=== PATIENT | female | born 1950 | race Caucasian/White ===

== ENCOUNTER 2017-10-17 15:23 | Observation (INO) ==
--- NOTE | 2017-10-17 15:49 | Emergency Department Note ---
Disposition Clinical Impression: Asthma exacerbation Qualifiers: Asthma severity: moderate Asthma persistence: persistent Qualified Code(s): J45.41 - Moderate persistent asthma with (acute) exacerbation Disposition: Admitted As Inpatient Time of Disposition: 19:30 Nausea/Vomiting/Diarrhea HPI - General Chief complaint: ED Nausea/Vomiting/Diarrhea Stated complaint: cough and vomiting x one day Time Seen by Provider: 10/17/17 15:33 Source: patient, family Mode of arrival: wheelchair Limitations: no limitations Nursing Notes Reviewed: Yes Vital Signs Reviewed: Yes - History of Present Illness HPI Narrative: 67 year old female presents with coughing and vomiting. pt reports was mowing grass yesterday and all last night she was up coughing, nonproductive. this morning had nausea/vomiting. Vomited about 4 times. no abdominal pain, no diarrhea. no fevers Pt Subjective Complaint: nausea, vomiting Onset (ago): Just SOLE TIER Description of emesis: watery, bilious Associated Abdominal Pain: No Severity: none Improves with: nothing Worsens with: nonthing Associated symptoms: Reports: cough, shortness of breath. Denies: fever/chills , headaches, loss of appetite - Related Data Home Medications Medication Instructions Recorded Confirmed Biotin 5 mg PO DAILY 11/03/15 10/17/17 Carvedilol [Coreg] 25 mg PO BID 11/03/15 10/17/17 Cholecalciferol (Vitamin D3) 2,000 unit PO DAILY 11/03/15 10/17/17 [Vitamin D3] Citalopram Hydrobromide 20 mg PO DAILY 11/03/15 10/17/17 [Citalopram HBr] Famotidine [Pepcid] 40 mg PO HS 11/03/15 10/17/17 Ferrous Sulfate [Iron Supplement] 325 mg PO BID 11/03/15 10/17/17 Fluticasone/Salmeterol [Advair 1 puff IH BID 11/03/15 10/17/17 500-50 Diskus] Ipratropium/Albuterol Neb [Duoneb] 3 ml IH Q6HR 11/03/15 10/17/17 Levothyroxine Sodium [Tirosint] 75 mcg PO DAILY 11/03/15 10/17/17 Metoclopramide [Reglan] 10 mg PO QIDAC 11/03/15 10/17/17 Montelukast [Singulair] 10 mg PO HS 11/03/15 10/17/17 Multivitamin [Multi-Day Vitamins] 1 tab PO DAILY 11/03/15 10/17/17 Pantoprazole Sodium [Protonix] 40 mg PO DAILY 11/03/15 10/17/17 Potassium Chloride [K-Tab ER] 20 meq PO BID 11/03/15 10/17/17 Valsartan [Diovan] 80 mg PO DAILY 11/03/15 10/17/17 clonazePAM [Clonazepam] 1 mg PO Q8H 11/03/15 10/17/17 lamoTRIgine [Lamictal] 100 mg PO HS 11/03/15 10/17/17 Atorvastatin Calcium [Lipitor] 20 mg PO HS 12/01/15 10/17/17 Clopidogrel [Plavix] 75 mg PO DAILY 12/01/15 10/17/17 Previous Rx's Medication Instructions Recorded Aspirin Enteric Coated [Aspirin EC] 81 mg PO DAILY #90 tablet. 11/04/15 Benzonatate [Tessalon] 100 mg PO TID PRN #18 capsule 08/05/17 predniSONE [Prednisone] 4 tab PO DAILY #20 tab 08/05/17 Allergies Allergy/AdvReac Type Severity Reaction Status Date / Time dronedarone [From Multaq] Allergy Palpitation Verified 11/03/15 12:34 s heparin Allergy THROMBOCYTO Verified 11/03/15 19:02 PENIA alendronate sodium AdvReac Gastrointestinal Verified 11/03/15 12:34 [From Fosamax] Upset atorvastatin [From Lipitor] AdvReac Cramping Verified 11/03/15 12:34 of the Muscles All systems ED: reviewed and negative except as stated. Review of Systems: As Per HPI Constitutional: Denies: fever, chills Cardiovascular: Denies: chest pain, palpitations Respiratory: Reports: cough, dyspnea, wheezes. Denies: sputum production Gastrointestinal: Reports: nausea, vomiting. Denies: abdominal pain, diarrhea Genitourinary: Denies: urgency, dysuria Musculoskeletal: Denies: back pain, neck pain Integumentary: Denies: rash Neurological: Denies: headache Hematological/Lymphatic: Denies: easy bleeding, easy bruising Past Medical History - Past Medical History Attestation: Yes The following information was validated with the patient. Source: patient, nursing notes reviewed Medical history: Reports: GERD, hyperlipidemia, hypertension, thyroid disease Surgical history: Reports: cholecystectomy, coronary bypass (CABG), SARAH/BSO, other Psychiatric history: Reports: no psych history LMP comments: post menopausal - Social History Smoking Status: Never smoker Smokeless Tobacco Status: No Alcohol use: Reports: none Drug use: Reports: none Physical Exam - General Limitations: no limitations General appearance: alert, in no apparent distress - Eye Eye exam: Present: PERRL, EOMI. Absent: conjunctival injection - ENT ENT exam: normal oropharynx, mucous membranes moist, TM's normal bilaterally - Neck Neck exam: Present: normal inspection, full ROM. Absent: lymphadenopathy, thyromegaly - Chest Chest inspection: Present: normal inspection, symmetric chest wall rise - Respiratory Respiratory exam: Present: normal lung sounds bilaterally. Absent: respiratory distress - Cardiovascular Cardiovascular exam: Present: regular rate, normal rhythm, normal heart sounds - Abdominal Exam Abdominal exam: Present: soft, Non-Tender, normal bowel sounds. Absent: diminished bowel sounds, organomegaly - Extremities Exam Extremities exam: Present: normal inspection, full ROM. Absent: pedal edema - Neurological Exam Neurological exam: Present: alert, oriented X3 - Psychiatric Psychiatric exam: Present: normal affect - Skin Skin exam: Present: warm, dry, intact, pallor Course Course Narrative: pt given IVF, zofran, solumedrol and neb treatment with improvement. Unable to remove oxygen . O2 sats decreases to 87-88%. Pt will be admitted and has beenaccepted by Dr. Mejia Vital Signs Temperature 97.3 F L 10/17/17 15:41 Pulse Rate 78 10/17/17 15:41 Respiratory Rate 16 10/17/17 15:41 Blood Pressure 126/84 10/17/17 15:41 O2 Sat by Pulse Oximetry 95 10/17/17 15:41 Temperature 97.3 F L 10/17/17 15:41 Pulse Rate 82 10/17/17 17:20 Respiratory Rate 16 10/17/17 18:05 Blood Pressure 109/65 10/17/17 18:05 O2 Sat by Pulse Oximetry 92 10/17/17 17:20 Oxygen Delivery Oxygen Delivery Nasal Cannula Nausea/Vomiting/Diarrhea - Differential Diagnosis Likely: gastroenteritis. Unlikely: bowel obstruction, ischemic bowel - Lab Data Lab results reviewed: Yes I reviewed the patient's lab results. Lab results narrative: pts labs within normal limits. results discussed with pt Result diagrams: 10/17/17 15:39 10/17/17 15:39 Lab Results 10/17/17 10/17/17 10/17/17 Range/Units 15:39 15:39 15:39 WBC 8.4 (4.3-11.1) K/mcL RBC 3.86 (3.82-4.97) M/mcL Hgb 11.9 (11.5-15.4) g/dL Hct 35.0 L (35.3-44.9) % MCV 90.7 (83.0-100.0) fL MCH 30.8 (28.0-33.3) pg MCHC 34.0 (31.6-35.5) g/dL RDW 13.5 (11.5-14.5) % Plt Count 163 (140-400) K/mcL MPV 9.8 (9.4-12.4) fL Immature Gran % 0.5 (0-4) % Seg Neutrophils % 79.3 % Lymphocytes % 9.9 % Monocytes % 9.8 % Eosinophils % 0.1 % Basophils % 0.4 % Neutrophils # 6.7 (1.6-8.9) K/mcL Lymphocytes # 0.8 (0.6-4.6) K/mcL Monocytes # 0.8 (0.0-1.3) K/mcL Eosinophils # 0.0 (0.0-0.6) K/mcL Basophils # 0.0 (0.0-0.2) K/mcL PT 12.8 H (9.4-12.1) Seconds INR 1.2 APTT 31.7 (26.0-36.0) Seconds Sodium 133 L (136-145) mEq/L Potassium 3.8 (3.5-5.1) mEq/L Chloride 101 (98-107) mEq/L Carbon Dioxide 23 (23-29) mEq/L BUN 11 (8-23) mg/dL Creatinine 1.00 (0.60-1.20) mg/dL Est GFR ( Amer) > 60 (> 60) Est GFR (Non-Af Amer) 55 L (> 60) BUN/Creatinine Ratio 11 (6-26) Glucose 128 H (70-105) mg/dL Calculated Osmolality 277 L (280-300) Calcium 9.7 (8.6-10.3) mg/dL Total Bilirubin 1.6 H (0.3-1.0) mg/dL AST 17 (13-39) Units/L ALT 8 (7-52) Units/L Alkaline Phosphatase 54 (34-104) Units/L Creatine Kinase 73 (30-223) Units/L Troponin I 0.03 (< 0.04) ng/mL Serum Total Protein 6.6 (6.4-8.9) g/dL Albumin 4.1 (3.5-5.7) g/dL Globulin 2.5 (2.4-3.5) g/dL Albumin/Globulin Ratio 1.6 (1.1-2.2) Amylase 35 (29-103) Units/L Lipase 17 (11-82) Units/L - Radiology Data Radiology results reviewed: Yes I reviewed the patient's radiology results. pts chest xray was interpreted by the radiologist and reviewed by me as negative for acute abnormalities. Results discussed with pt - EKG Data EKG attestation: Yes I reviewed and interpreted this EKG. EKG shows normal: sinus rhythm Rate: normal Rhythm: other (paced rhythm) Interpretation: other (paced rhythm)
[2017-10-17] MEDS ORDERED: Ondansetron 4 MG/2 ML VIAL IVP ONE (15:50)
[2017-10-17] MEDS ORDERED: 0.9 % Sodium Chloride 1,000 ML IVC ONE (15:50)
[2017-10-17] MEDS ORDERED: Ipratropium/Albuterol Neb 3 ML IH ONE (15:50)
[2017-10-17] MEDS ORDERED: methylPREDNISolone 125 MG/2 ML VIAL IVP ONE (15:50)
[2017-10-17 15:59] LABS: Basophils % 0.4 %; Eosinophils % 0.1 %; Hemoglobin 11.9 g/dL (11.5-15.4); Immature Granulocytes % 0.5 % (0-4); Lymphocytes # 0.8 K/mcL (0.6-4.6); Lymphocytes % 9.9 %; Mean Corpuscular Hemoglobin 30.8 pg (28.0-33.3); Mean Corpuscular Volume 90.7 fL (83.0-100.0); Mean Platelet Volume 9.8 fL (9.4-12.4); Monocytes # 0.8 K/mcL (0.0-1.3); Monocytes % 9.8 %; Neutrophils # 6.7 K/mcL (1.6-8.9); Platelet Count 163 K/mcL (140-400); Red Blood Count 3.86 M/mcL (3.82-4.97); Red Cell Distribution Width 13.5 % (11.5-14.5); Segmented Neutrophils % 79.3 %
[2017-10-17 16:01] LABS: INR 1.2; Prothrombin Time 12.8 Seconds (9.4-12.1)
[2017-10-17 16:04] LABS: Activated Partial Thrombo Time 31.7 Seconds (26.0-36.0)
[2017-10-17 16:11] LABS: Troponin I 0.03 ng/mL (< 0.04)
[2017-10-17 16:12] LABS: Alanine Aminotransferase 8 Units/L (7-52); Albumin 4.1 g/dL (3.5-5.7); Albumin/Globulin Ratio 1.6 (1.1-2.2); Alkaline Phosphatase 54 Units/L (34-104); Amylase 35 Units/L (29-103); Aspartate Amino Transferase 17 Units/L (13-39); BUN/Creatinine Ratio 11 (6-26); Bilirubin,Total 1.6 mg/dL (0.3-1.0); Blood Urea Nitrogen 11 mg/dL (8-23); Calcium 9.7 mg/dL (8.6-10.3); Carbon Dioxide 23 mEq/L (23-29); Chloride 101 mEq/L (98-107); Creatine Kinase 73 Units/L (30-223); Globulin 2.5 g/dL (2.4-3.5); Glucose 128 mg/dL (70-105); Lipase 17 Units/L (11-82); Osmolality,Calculated 277 (280-300); Potassium 3.8 mEq/L (3.5-5.1); Sodium 133 mEq/L (136-145); Total Protein 6.6 g/dL (6.4-8.9); eGFR For African Americans > 60 (> 60); eGFR For Non-African Americans 55 (> 60)
[2017-10-17] MEDS ORDERED: Benzonatate 100 MG CAPSULE PO PRN (17:10)
[2017-10-17] MEDS ORDERED: Naloxone 0.4 MG/ML INJ IVP PRN (17:10)
[2017-10-17] MEDS ORDERED: clonazePAM 1 MG TABLET PO SCH (17:15)
--- NOTE | 2017-10-17 18:30 | Internal Med History&Physical ---
Date of Encounter: 10/17/17 Time of Encounter: 19:49 Assessment and Plan (1) Asthma exacerbation Current visit: Yes Status: Acute oxygen,solumedrol, duoneb and prn albuterol. rocephin,zithromax Qualifiers: Asthma severity: moderate Asthma persistence: persistent Qualified Code(s ): J45.41 - Moderate persistent asthma with (acute) exacerbation (2) Essential (primary) hypertension Current visit: Yes Status: Acute will continue her home medication (3) Acquired hypothyroidism Current visit: Yes Status: Acute will continue her home medication (4) Depression Current visit: Yes Status: Acute will continue her home medication Qualifiers: Depression Type: dysthymia Qualified Code(s): F34.1 - Dysthymic disorder (5) CAD (coronary artery disease) Current visit: No Status: Chronic troponin serial ordered from ER Qualifiers: Coronary Disease-Associated Artery/Lesion type: bypass graft, autologous vein Associated angina: without angina Qualified Code(s): I25.810 - Atherosclerosis of coronary artery bypass graft(s) without angina pectoris (6) History of heparin-induced thrombocytopenia Current visit: No Status: Chronic melba hose for dvt prophylaxis (7) Mixed hyperlipidemia Current visit: No Status: Chronic home medication (8) GERD (gastroesophageal reflux disease) Current visit: Yes Status: Acute will continue ppi and pepcid Qualifiers: Esophagitis presence: esophagitis presence not specified Qualified Code(s) : K21.9 - Gastro-esophageal reflux disease without esophagitis (9) Anemia Current visit: Yes Status: Acute continue the po iron repeat cbc in the am Qualifiers: Anemia type: unspecified type Qualified Code(s): D64.9 - Anemia, unspecified Internal Medicine - H&P: HPI Chief complaint: sob Admitted From: Home Plans for Post Hospital Care: Home History of present illness: Ms. Little is a 67 year old female who started having emesis today at home. she called the office and Palak Torres sent phenergan for her. she got sob with wheezing and came to the ER. there she was noted to be hypoxic in the 80s on room air. she was admitted due the hypoxia. she has not needed oxygen prior. she was given solumedrol and duonebs in the er and the oxygen. on 09/24/17 she was seen in the office with an asthma exacerbation and took prednisone as a taper and benzonatate. she did get better from that then this started yesterday after cut the lawn yesterday. she was coughing wheezing sob, no sputum, felt warm. she was nauseated and had emesis x 4 today. she is not nauseated now no emesis since the am. she ate lunch and has dinner now. Past Med Surg Social Fam HX - Past Medical History Medical history: asthma, coronary artery disease (pacemaker, cabg and stent), GERD, hyperlipidemia, hypertension, kidney stones, osteoporosis, thyroid disease (hypothyroid), valvular heart disease (MVR), other (vitamin b12 def, urethral polyp, HIT,crohn's,back pain) Psychiatric history: anxiety, depression - Past Surgical History Surgical History: carotid endarterectomy (right 10/2015, left 11/2015), cholecystectomy (1999), coronary bypass (CABG) (1998.2000 with MVR), SARAH/BSO ( 1984), other (dental 2009, colonoscopy 2008,08/07/17; bowel resection 1984,2000) , pacemaker (2007, 2009, 12/10/14) - Social History Smoking Status: Never smoker Smokeless Tobacco Status: No Alcohol use: none Drug use: none - Family History Mother Hx Family Cardiac Disorders: Yes ("heart problems") Hx Family Cancer: Yes (breast) Brother Hx Family Cardiac Disorders: Yes (cad) Hx Family Neuromuscular Disorders: Yes (dementia) Father Living Status: Age at : 29 Cause of : electrical accident Sister Hx Family Cardiac Disorders: Yes (cad) Hx Family GI Disorders: Yes (celiac) Hx Family Endocrine Disorder: Yes (dm2) Paternal Grandfather Living Status: Cause of : pneumonia Maternal Grandfather Hx Family Cardiac Disorders: Yes (htn) Hx Family Endocrine Disorder: Yes (dm2) Internal Medicine - H&P: Meds Biotin 5 mg PO DAILY 11/03/15 [History] Carvedilol [Coreg] 25 mg PO BID 11/03/15 [History] Cholecalciferol (Vitamin D3) [Vitamin D3] 2,000 unit PO DAILY 11/03/15 [History] Citalopram Hydrobromide [Citalopram HBr] 20 mg PO DAILY 11/03/15 [History] Famotidine [Pepcid] 40 mg PO HS 11/03/15 [History] Ferrous Sulfate [Iron Supplement] 325 mg PO BID 11/03/15 [History] Fluticasone/Salmeterol [Advair 500-50 Diskus] 1 puff IH BID 11/03/15 [History] Ipratropium/Albuterol Neb [Duoneb] 3 ml IH Q6HR 11/03/15 [History] Levothyroxine Sodium [Tirosint] 75 mcg PO DAILY 11/03/15 [History] Metoclopramide [Reglan] 10 mg PO QIDAC 11/03/15 [History] Montelukast [Singulair] 10 mg PO HS 11/03/15 [History] Multivitamin [Multi-Day Vitamins] 1 tab PO DAILY 11/03/15 [History] Pantoprazole Sodium [Protonix] 40 mg PO DAILY 11/03/15 [History] Potassium Chloride [K-Tab ER] 20 meq PO BID 11/03/15 [History] Valsartan [Diovan] 80 mg PO DAILY 11/03/15 [History] clonazePAM [Clonazepam] 1 mg PO Q8H 11/03/15 [History] lamoTRIgine [Lamictal] 100 mg PO HS 11/03/15 [History] Aspirin Enteric Coated [Aspirin EC] 81 mg PO DAILY #90 tablet. 11/04/15 [Rx] Atorvastatin Calcium [Lipitor] 20 mg PO HS 12/01/15 [History] Clopidogrel [Plavix] 75 mg PO DAILY 12/01/15 [History] Benzonatate [Tessalon] 100 mg PO TID PRN #18 capsule 08/05/17 [Rx] predniSONE [Prednisone] 4 tab PO DAILY #20 tab 08/05/17 [Rx] 3 Allergy/AdvReac Type Severity Reaction Status Date / Time dronedarone [From Multaq] Allergy Palpitation Verified 11/03/15 12:34 s heparin Allergy THROMBOCYTO Verified 11/03/15 19:02 PENIA alendronate sodium AdvReac Gastrointestinal Verified 11/03/15 12:34 [From Fosamax] Upset atorvastatin [From Lipitor] AdvReac Cramping Verified 11/03/15 12:34 of the Muscles All Systems PM: A 10-system review of systems was performed and is negative for pertinent findings except as documented above in the HPI. - Constitutional Constitutional: fever(s) (subective), no falls - EENT Eyes: no change in vision Nose, mouth and throat: nasal congestion, nasal discharge - Cardiovascular Cardiovascular ROS IM: dyspnea, dyspnea on exertion, no edema, no lightheadedness, no palpitations, no syncope - Respiratory Respiratory: cough, dyspnea on exertion, wheezing, chest congestion, pain with cough, no hemoptysis - Gastrointestinal Gastrointestinal: heartburn, nausea, vomiting, no abdominal pain, no change in bowel habits, no constipation, no diarrhea, no hematemesis, no hematochezia - Musculoskeletal Musculoskeletal ROS IM: no tingling - Integumentary Integumentary IM: no pruritus, no rash - Neurological Neurological ROS: no dizziness, no numbness, no paresthesias, no weakness - Endocrine Endocrine IM: fatigue - Constitutional Vitals: Temp Pulse Resp BP Pulse Ox 97.3 F L 82 16 109/65 92 10/17/17 15:41 10/17/17 17:20 10/17/17 18:05 10/17/17 18:05 10/17/17 17:20 General appearance: Present: A&O X 3, pleasant, no acute distress, answers questions appropriately - Head Head exam: Present: atraumatic, normocephalic - Neck Neck exam general surgery: Present: full ROM - Respiratory Respiratory exam: Present: prolonged expiratory phase - Cardiovascular Cardiovascular exam: Present: RRR, +S1, +S2 - GI/Abdominal GI/Abdominal exam: Present: normal bowel sounds, soft, no peritoneal signs. Absent: distended, guarding, mass, tenderness - Extremities Exam Extremities exam: Present: normal capillary refill, warm. Absent: mottling, pedal edema - Skin Skin exam: Present: dry, warm. Absent: rash Internal Med - H&P Results - Labs CBC & Chem 7: 10/17/17 15:39 10/17/17 15:39
[2017-10-17] MEDS: 0.9 % Sodium Chloride 1,000 ML IVC SCH (18:36)
[2017-10-17] MEDS ORDERED: Albuterol 2.5 MG/3 ML NEBULIZER IH PRN (19:03)
[2017-10-17] MEDS: Budesonide/Formoterol 160/4.5 MDI IH SCH (20:51)
[2017-10-17] MEDS: Famotidine 20 MG TABLET PO SCH (20:51)
[2017-10-17] MEDS: lamoTRIgine 100 MG TABLET PO SCH (20:51)
[2017-10-17] MEDS: cefTRIAXone 1,000 MG in Water for inj. (sterile) 20 ML 10 ML IVP SCH (20:52)
[2017-10-17] MEDS: Azithromycin 500 MG in D5% in Water 250 ML IVPB SCH (20:55)
[2017-10-17] MEDS: Ipratropium/Albuterol Neb 3 ML IH SCH (21:05)
[2017-10-18] MEDS: methylPREDNISolone 125 MG/2 ML VIAL IVP SCH ×4 (00:03→23:18)
[2017-10-18] MEDS: 0.9 % Sodium Chloride 1,000 ML IVC SCH (02:40)
[2017-10-18 03:52] LABS: Hematocrit 30.3 % (35.3-44.9); Hemoglobin 10.2 g/dL (11.5-15.4); Immature Granulocytes % 0.3 % (0-4); Lymphocytes # 0.8 K/mcL (0.6-4.6); Lymphocytes % 22.5 %; Mean Corpuscular HGB Conc 33.7 g/dL (31.6-35.5); Mean Corpuscular Hemoglobin 30.9 pg (28.0-33.3); Mean Corpuscular Volume 91.8 fL (83.0-100.0); Mean Platelet Volume 9.1 fL (9.4-12.4); Monocytes # 0.1 K/mcL (0.0-1.3); Monocytes % 2.8 %; Neutrophils # 2.7 K/mcL (1.6-8.9); Platelet Count 122 K/mcL (140-400); Red Cell Distribution Width 13.6 % (11.5-14.5); Segmented Neutrophils % 74.4 %
[2017-10-18 04:08] LABS: Alanine Aminotransferase 7 Units/L (7-52); Albumin 3.4 g/dL (3.5-5.7); Albumin/Globulin Ratio 1.5 (1.1-2.2); Alkaline Phosphatase 41 Units/L (34-104); Aspartate Amino Transferase 14 Units/L (13-39); BUN/Creatinine Ratio 15 (6-26); Bilirubin,Total 1.2 mg/dL (0.3-1.0); Blood Urea Nitrogen 15 mg/dL (8-23); Calcium 8.7 mg/dL (8.6-10.3); Carbon Dioxide 24 mEq/L (23-29); Chloride 103 mEq/L (98-107); Globulin 2.3 g/dL (2.4-3.5); Glucose 146 mg/dL (70-105); Osmolality,Calculated 281 (280-300); Sodium 134 mEq/L (136-145); Total Protein 5.7 g/dL (6.4-8.9); eGFR For African Americans > 60 (> 60); eGFR For Non-African Americans 54 (> 60)
[2017-10-18] MEDS: Ipratropium/Albuterol Neb 3 ML IH SCH ×4 (05:00→22:02)
[2017-10-18 05:16] LABS: Bilirubin,Urine Negative (Negative); Blood,Urine Moderate (Negative); Clarity,Urine Clear (Clear); Color,Urine Yellow (Yellow); Glucose,Urine (UA) Normal (Normal); Ketones,Urine Negative (Negative); Leukocyte Esterase,Urine Negative (Negative); Nitrite,Urine Negative (Negative); Protein,Urine Trace mg/dL (Neg-Trace); Specific Gravity,Urine 1.015 (1.010-1.025); Urobilinogen,Urine Normal (Normal)
[2017-10-18 05:27] LABS: Bacteria,Urine Few per hpf (None-Few); RBC,Urine 15-30 per hpf (0-3); Squamous Epithelial Cell,Urine Few per lpf (None-Few); WBC,Urine 0-3 per hpf (0-3)
--- NOTE | 2017-10-18 08:27 | Internal Med Progress Note ---
Date of Encounter: 10/18/17 Time of Encounter: 08:27 - Assessment and plan (1) Asthma exacerbation Current Visit: Yes Status: Acute Assessment and plan: she has wheezing on exam today. she is feeling better. will wean oxygen as tolerated. cont duonebs, prn alb, cont solumedrol,zithromax and the rocephin. she was not on oxygen prior to admission Qualifiers: Asthma severity: moderate Asthma persistence: persistent Qualified Code(s ): J45.41 - Moderate persistent asthma with (acute) exacerbation (2) Essential (primary) hypertension Current Visit: Yes Status: Acute Assessment and plan: stable will continue home medication (3) Acquired hypothyroidism Current Visit: Yes Status: Acute Assessment and plan: will cont home medication (4) Depression Current Visit: Yes Status: Acute Assessment and plan: will continue home medication Qualifiers: Depression Type: dysthymia Qualified Code(s): F34.1 - Dysthymic disorder (5) CAD (coronary artery disease) Current Visit: No Status: Chronic Assessment and plan: troponin were neg x 3 cont coreg asa and plavix Qualifiers: Coronary Disease-Associated Artery/Lesion type: bypass graft, autologous vein Associated angina: without angina Qualified Code(s): I25.810 - Atherosclerosis of coronary artery bypass graft(s) without angina pectoris (6) History of heparin-induced thrombocytopenia Current Visit: No Status: Chronic Assessment and plan: she has melba megan for dvt prophylaxis (7) Mixed hyperlipidemia Current Visit: No Status: Chronic Assessment and plan: continue home medication (8) GERD (gastroesophageal reflux disease) Current Visit: Yes Status: Acute Assessment and plan: cont home medication. she is not having any more emesis Qualifiers: Esophagitis presence: esophagitis presence not specified Qualified Code(s) : K21.9 - Gastro-esophageal reflux disease without esophagitis (9) Anemia Current Visit: Yes Status: Acute Assessment and plan: hg has decreased will follow could be due to hemodilution. cont iron Qualifiers: Anemia type: unspecified type Qualified Code(s): D64.9 - Anemia, unspecified (10) S/P MVR (mitral valve replacement) Current Visit: Yes Status: Acute Assessment and plan: will check echo today with her sob - Subjective Interval history: she feels better this morning. she slept well. the wheezing did not keep her up. her cough is better, no sputum, felt feverish last night and got sweaty. no more nausea or emesis. no diarrhea. no dizzy, no cp, no edema. - Constitutional Vitals: Temp Pulse Resp BP Pulse Ox 97.3 F L 90 18 120/78 99 10/18/17 07:49 10/18/17 07:49 10/18/17 07:49 10/18/17 07:49 10/18/17 07:49 General appearance: Present: A&O X 3, pleasant, no acute distress, answers questions appropriately - Head Head exam: Present: atraumatic, normocephalic - Neck Neck exam general surgery: Present: supple, trachea midline. Absent: lymphadenopathy - Respiratory Respiratory exam: Present: decreased breath sounds (bases), prolonged expiratory phase, wheezes - Cardiovascular Cardiovascular exam: Present: RRR, systolic murmur - GI/Abdominal GI/Abdominal exam: Present: normal bowel sounds, soft, no peritoneal signs. Absent: distended, guarding, mass, rebound, tenderness - Extremities Exam Extremities exam: Present: normal capillary refill, warm. Absent: cyanotic, pedal edema - Skin Skin exam: Present: dry, warm. Absent: rash Internal Medicine: Result - Labs CBC & Chem 7: 10/18/17 03:41 10/18/17 03:41 Labs: Short CBC 10/18/17 Range/Units 03:41 WBC 3.6 L D (4.3-11.1) K/mcL Hgb 10.2 L D (11.5-15.4) g/dL Hct 30.3 L (35.3-44.9) % Plt Count 122 L (140-400) K/mcL Neutrophils # 2.7 (1.6-8.9) K/mcL BMP 10/18/17 03:41 Sodium 134 L Potassium 4.0 Chloride 103 Carbon Dioxide 24 BUN 15 Creatinine 1.02 Glucose 146 H Calcium 8.7 Cardiac Enzymes 10/17/17 10/18/17 Range/Units 21:38 03:41 Troponin I 0.03 < 0.03 (< 0.04) ng/mL Liver Function 10/18/17 Range/Units 03:41 Total Bilirubin 1.2 H (0.3-1.0) mg/dL AST 14 (13-39) Units/L ALT 7 (7-52) Units/L Alkaline Phosphatase 41 (34-104) Units/L Albumin 3.4 L (3.5-5.7) g/dL Urine 10/18/17 Range/Units 04:20 Urine Color Yellow (Yellow) Urine Clarity Clear (Clear) Urine pH 6.0 (5.0-8.0) pH Units Ur Specific [place] 1.015 (1.010-1.025) Urine Protein Trace (Neg-Trace) mg/dL Urine Glucose (UA) Normal (Normal) mg/dL - ABG Interpretation ABG results: PT/INR, D-dimer PT 12.8 Seconds (9.4-12.1) H 10/17/17 15:39 - VTE Documentation of Mechanical Device: Graduated compression elastic hosiery Consult Discharge Plan - Plan Referrals: Ann Torres, HOME ADVISOR [Primary Care Provider] -
[2017-10-18] MEDS: Valsartan 80 MG TABLET PO SCH (08:59)
[2017-10-18] MEDS: Multivit/Ca/Min/Fe/FA 1 TAB TABLET PO SCH (09:00)
[2017-10-18] MEDS: Aspirin Enteric Coated 81 MG Tablet PO SCH (09:00)
[2017-10-18] MEDS ORDERED: Cholecalciferol (D-3) 1,000 UNIT TABLET PO SCH (09:00)
[2017-10-18] MEDS: Folic Acid 1 MG TABLET PO SCH (09:00)
[2017-10-18] MEDS: (Biotin [Biotin] 5 MG) PO SCH (09:01)
[2017-10-18] MEDS: Cholecalciferol (D-3) 1,000 UNIT TABLET PO SCH (09:01)
--- NOTE | 2017-10-18 09:01 | Electrocardiograph Report ---
[place] [id number] Test Date: 2017-10-17 Pat Name: Lu Little Department: 2000 Room: 118 Gender: F Commercial Plumber: : [id number] Requested By: Talita Vasquez Order Number: [id number] Reading MD: Gilbert Woodard Measurements Intervals [place] Rate: 82 P: [place]: 0 QRS: 69 QRSD: 148 T: 134 QT: 435 QTc: 474 Interpretive Statements ELECTRONIC VENTRICULAR PACEMAKER WITH PVC Electronically Signed On 10-18-2017 8:59:39 EDT by Gilbert Woodard
[2017-10-18] MEDS: Budesonide/Formoterol 160/4.5 MDI IH SCH ×2 (09:02→22:08)
[2017-10-18] MEDS: clonazePAM 1 MG TABLET PO PRN ×3 (09:56→22:02)
[2017-10-18] MEDS ORDERED: Perflutren Lipid Microsphere 1.3 ML in 0.9 % Sodium Chloride 8.7 ML IVP ONE (15:51)
[2017-10-18] MEDS: Azithromycin 500 MG in D5% in Water 250 ML IVPB SCH (17:26)
[2017-10-18] MEDS: cefTRIAXone 1,000 MG in Water for inj. (sterile) 20 ML 10 ML IVP SCH (17:26)
[2017-10-18] MEDS: Famotidine 20 MG TABLET PO SCH (22:02)
[2017-10-18] MEDS: lamoTRIgine 100 MG TABLET PO SCH (22:02)
[2017-10-18] MEDS ORDERED: traMADol 50 MG TABLET PO PRN (23:06)
[2017-10-18] MEDS: Acetaminophen 325 MG TABLET PO PRN (23:21)
[2017-10-19] MEDS: Ipratropium/Albuterol Neb 3 ML IH SCH ×2 (05:12→09:35)
[2017-10-19 05:38] LABS: Hematocrit 27.9 % (35.3-44.9); Hemoglobin 9.5 g/dL (11.5-15.4); Immature Granulocytes % 0.5 % (0-4); Lymphocytes # 1.1 K/mcL (0.6-4.6); Lymphocytes % 10.1 %; Mean Corpuscular HGB Conc 34.1 g/dL (31.6-35.5); Mean Corpuscular Hemoglobin 30.8 pg (28.0-33.3); Mean Corpuscular Volume 90.6 fL (83.0-100.0); Mean Platelet Volume 10.2 fL (9.4-12.4); Monocytes # 0.4 K/mcL (0.0-1.3); Monocytes % 3.3 %; Platelet Count 127 K/mcL (140-400); Red Blood Count 3.08 M/mcL (3.82-4.97); Red Cell Distribution Width 13.6 % (11.5-14.5); Segmented Neutrophils % 86.1 %
[2017-10-19 05:45] LABS: Neutrophils # 9.6 K/mcL (1.6-8.9)
[2017-10-19 06:02] LABS: BUN/Creatinine Ratio 20 (6-26); Blood Urea Nitrogen 20 mg/dL (8-23); Calcium 8.9 mg/dL (8.6-10.3); Carbon Dioxide 22 mEq/L (23-29); Chloride 104 mEq/L (98-107); Glucose 142 mg/dL (70-105); Osmolality,Calculated 283 (280-300); Potassium 4.2 mEq/L (3.5-5.1); Sodium 134 mEq/L (136-145); eGFR For African Americans > 60 (> 60); eGFR For Non-African Americans 55 (> 60)
[2017-10-19] MEDS: Multivit/Ca/Min/Fe/FA 1 TAB TABLET PO SCH (08:27)
[2017-10-19] MEDS: methylPREDNISolone 125 MG/2 ML VIAL IVP SCH (08:27)
[2017-10-19] MEDS: Acetaminophen 325 MG TABLET PO PRN (08:27)
[2017-10-19] MEDS: (Biotin [Biotin] 5 MG) PO SCH (08:28)
[2017-10-19] MEDS: Valsartan 80 MG TABLET PO SCH (08:28)
[2017-10-19] MEDS: Folic Acid 1 MG TABLET PO SCH (08:28)
[2017-10-19] MEDS: Cholecalciferol (D-3) 1,000 UNIT TABLET PO SCH (08:28)
[2017-10-19] MEDS: Aspirin Enteric Coated 81 MG Tablet PO SCH (08:28)
[2017-10-19] MEDS: clonazePAM 1 MG TABLET PO PRN (09:35)
[2017-10-19] MEDS: Budesonide/Formoterol 160/4.5 MDI IH SCH (09:35)
[2017-10-19 12:49] VITALS: BP 155/88
--- NOTE | 2017-10-19 13:27 | Internal Med Progress Note ---
Date of Encounter: 10/19/17 Time of Encounter: 13:06 - Constitutional Vitals: Temp Pulse Resp BP Pulse Ox 97.9 F 69 18 155/88 97 10/19/17 12:30 10/19/17 12:30 10/19/17 12:30 10/19/17 12:30 10/19/17 12:30 General appearance: Present: A&O X 3, pleasant, no acute distress, answers questions appropriately Internal Medicine: Result - Labs CBC & Chem 7: 10/19/17 05:30 10/19/17 05:30 Labs: Short CBC 10/19/17 Range/Units 05:30 WBC 11.1 D (4.3-11.1) K/mcL Hgb 9.5 L (11.5-15.4) g/dL Hct 27.9 L (35.3-44.9) % Plt Count 127 L (140-400) K/mcL Neutrophils # 9.6 H (1.6-8.9) K/mcL BMP 10/19/17 05:30 Sodium 134 L Potassium 4.2 Chloride 104 Carbon Dioxide 22 L BUN 20 Creatinine 1.00 Glucose 142 H Calcium 8.9 - ABG Interpretation ABG results: PT/INR, D-dimer PT 12.8 Seconds (9.4-12.1) H 10/17/17 15:39 - Impressions Impressions Echocardiogram 10/18/17 08:27 Impressions: LVEF 20-25%. Severe global reduction in LV systolic function. Indeterminate diastolic function. There is no LV thrombus. Definity echo contrast was used. RV is suboptimally evaluated. Prosthetic mitral valve is not optimally visualized. By Doppler, possible evidence for obstruction/stenosis. Recommend correlate clinically. Moderate tricuspid regurgitation. Mild-moderate pulmonary hypertension. Left Ventricular Wall Motion: Rest Echo Findings The apex, apical inferior, mid inferior, basal inferior, apical anterior, mid anterior, basal anterior, apical septal, mid inferior septal, basal inferior septal, apical lateral, mid anterior lateral, basal anterior lateral, mid anterior septal, mid inferior lateral, basal anterior septal and basal inferior lateral [place] were hypokinetic. Findings: Study Quality * Technically adequate exam. ECG Findings * Normal sinus rhythm. Left Ventricle * LVEF 20-25%. * Mild-moderately dilated left ventricle. * Indeterminate diastolic function. * There is no LV thrombus. * Definity echo contrast was used. Right Ventricle * RV is suboptimally evaluated. Left Atrium * Left atrium is not well visualized. Right Atrium * Normal right atrial size. Aortic Valve * No aortic regurgitation. * Aortic valve not well visualized. * No aortic stenosis. Mitral Valve * No mitral regurgitation. * Mitral valve not well visualized. * Prosthetic mitral Doppler Peak E wave 2.6m/s, PHT 143 ms, VTI ratio 3.2. Tricuspid Valve * Tricuspid valve not well visualized. * Moderate tricuspid regurgitation. * Estimated RA pressure is 8 mmHg. * Estimated RVSP is 49 mmHg. * Mild-moderate pulmonary hypertension. Pulmonic Valve * Pulmonic valve is not well visualized. * No pulmonic stenosis. * No pulmonic regurgitation. Pulmonary Artery * Pulmonary artery not well visualized. Aorta * Normally sized aortic root. * Ascending aorta not well visualized. Device lead * A device lead was visualized in the right atrium and right ventricle. Pericardium * There is no pericardial effusion present. Interatrial Septum * No evidence of PFO by color Doppler. IVC * The IVC is not dilated. * < 50% respiratory change. - VTE Documentation of Mechanical Device: Graduated compression elastic hosiery Consult Discharge Plan - Plan Referrals: Ann Torres, INFORMATION TECHNOLOGY TECHNICIAN [Primary Care Provider] -
--- NOTE | 2017-10-19 14:02 | Discharge Summary ---
- NOTES TO OUTPATIENT PROVIDER Notes to Outpatient Provider: #1. A tapering of prednisone was sent to [facility] pharmacy at time of discharge #2. Patient has mild anemia and thrombocytopenia and CBC should be rechecked. #3. Echocardiogram was done showing ejection fraction of 20-25% and poorly defined mitral valve. Patiently recently saw her computer operations technician in [place]. Records/echocardiogram should be forwarded to him. Date of Encounter: 10/19/17 Time of Encounter: 13:59 - Discharge Diagnosis (1) Asthma exacerbation Priority: Primary Status: Acute Comments: Patient was admitted to the hospital via the ER with a history of nausea and vomiting and dyspnea. The GI symptoms abated very quickly. She had residual exacerbation of her asthma. It was likely exposure to a chemical or allergen that she inhaled when her was mowing the grass. She is placed on aggressive nebulizer treatments, IV Solu-Medrol and oxygen. She improved very dramatically over the subsequent 2 days. Her oxygen saturations are 97%, she is able to walk the entire length of the hallway and back without having dyspnea or hypoxia or chest pain. Her lungs show diminished breath sounds but are clear. She was sufficiently improved and back to her usual ADLs to be able to send home today on tapering dose of prednisone. She has a nebulizer machine at home as well as her inhalers. She will follow-up in the office with Ann Torres in a few days. Qualifiers: Asthma severity: moderate Asthma persistence: persistent Qualified Code(s ): J45.41 - Moderate persistent asthma with (acute) exacerbation (2) Ischemic cardiomyopathy Priority: Secondary Status: Acute Comments: In the emergency room her BNP was elevated to 1500. On follow-up was 462. An echocardiogram was obtained which shows ischemic cardiopathy with a fixed defect without acute ischemic changes. Ejection fraction was estimated at 20-25 %. This is in comparison with a nuclear stress test done 2 years ago which showed ejection fraction of 29%. The views of the replaced mitral valve are suboptimal and they recommended clinical correlation. She has had no angina or clinical CHF signs or symptoms other than the transiently elevated BNP. She saw her computer operations technician in [place] recently in no acute changes were noted. (3) S/P MVR (mitral valve replacement) Priority: Secondary Status: Chronic Comments: She had no symptoms referral to the mitral valve. No angina or CHF symptoms. See the echocardiogram reported above. (4) Anemia Priority: Secondary Status: Acute Comments: Patient's hemoglobin did drop to 9.5 g. No active bleeding is noted. No melena or hematochezia. She does have a history of Crohn's disease and has had anemia in the past. The drop may be related to rehydration as well. Follow-up CBC recommended. Qualifiers: Anemia type: unspecified type Qualified Code(s): D64.9 - Anemia, unspecified (5) Thrombocytopenia Priority: Secondary Status: Acute Comments: Patient platelet count on admission was 122,000. Improved to 127,000. 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 She did not receive any heparin or heparin-like products during this stay. (6) Essential (primary) hypertension Priority: Secondary Status: Acute Comments: Patient has a history of hypertension. Blood pressure 155/88 on day of discharge. No changes were made in her medications. (7) CAD (coronary artery disease) Priority: Secondary Status: Chronic Comments: No angina or CHF were noted during this stay. Qualifiers: Coronary Disease-Associated Artery/Lesion type: bypass graft, autologous vein Associated angina: without angina Qualified Code(s): I25.810 - Atherosclerosis of coronary artery bypass graft(s) without angina pectoris Hospital course: Ms. Little is a 67 year old female was admitted via the ER with history of nausea and vomiting and trouble breathing. The underlying problem was an acute exacerbation of her asthma. Please see the above diagnoses. Today she is able to walk down the hallway and back, maintaining good saturation at 97%, did not have any cardiac or respiratory symptoms. She was discharged today on taper of prednisone. Discharge discussed with: patient - Time Spent with Patient Total time spent providing and/or coordinating discharge services: - Discharge Medications Prescriptions: PredniSONE [Deltasone] 20 mg PO DAILY #18 tablet Home Medications: Biotin 5 mg PO DAILY 11/03/15 [History] Carvedilol [Coreg] 25 mg PO BID 11/03/15 [History] Cholecalciferol (Vitamin D3) [Vitamin D3] 2,000 unit PO DAILY 11/03/15 [History] Citalopram Hydrobromide [Citalopram HBr] 20 mg PO DAILY 11/03/15 [History] Famotidine [Pepcid] 40 mg PO HS 11/03/15 [History] Ferrous Sulfate [Iron Supplement] 325 mg PO BID 11/03/15 [History] Fluticasone/Salmeterol [Advair 500-50 Diskus] 1 puff IH BID 11/03/15 [History] Ipratropium/Albuterol Neb [Duoneb] 3 ml IH Q6HR 11/03/15 [History] Montelukast [Singulair] 10 mg PO HS 11/03/15 [History] Multivitamin [Multi-Day Vitamins] 1 tab PO DAILY 11/03/15 [History] Pantoprazole Sodium [Protonix] 40 mg PO DAILY 11/03/15 [History] Valsartan [Diovan] 80 mg PO DAILY 11/03/15 [History] clonazePAM [Clonazepam] 1 mg PO Q8H 11/03/15 [History] lamoTRIgine [Lamictal] 100 mg PO HS 11/03/15 [History] Aspirin Enteric Coated [Aspirin EC] 81 mg PO DAILY #90 tablet. 11/04/15 [Rx] Atorvastatin Calcium [Lipitor] 20 mg PO HS 12/01/15 [History] Clopidogrel [Plavix] 75 mg PO DAILY 12/01/15 [History] Benzonatate [Tessalon] 100 mg PO TID PRN #18 capsule 08/05/17 [Rx] Folic Acid 5 mg PO DAILY tablet 10/19/17 [Rx] Levothyroxine [Synthroid] 88 mcg PO DAILY@0630 tablet 10/19/17 [Rx] Potassium Chloride 10 meq PO BIDWM tab.er.prt 10/19/17 [Rx] PredniSONE [Deltasone] 20 mg PO DAILY #18 tablet 10/19/17 [Rx] Allergies/Adverse Reactions: 3 Allergy/AdvReac Type Severity Reaction Status Date / Time dronedarone [From Multaq] Allergy Palpitation Verified 11/03/15 12:34 s heparin Allergy THROMBOCYTO Verified 11/03/15 19:02 PENIA alendronate sodium AdvReac Gastrointestinal Verified 11/03/15 12:34 [From Fosamax] Upset atorvastatin [From Lipitor] AdvReac Cramping Verified 11/03/15 12:34 of the Muscles Date of admission: 05/03/18 17:56 Primary care physician: Ann Torres CNP Discharging clinician: Dejan Lazaro Anticipated date of discharge: 10/19/17 - Constitutional Vitals: Temp Pulse Resp BP Pulse Ox 97.9 F 69 18 155/88 97 10/19/17 12:30 10/19/17 12:30 10/19/17 12:30 10/19/17 12:30 10/19/17 12:30 General appearance: Present: A&O X 3, pleasant, no acute distress, answers questions appropriately - Respiratory Respiratory exam: Present: decreased breath sounds, CTAB, prolonged expiratory phase - Cardiovascular Cardiovascular exam: Present: RRR, +S1, +S2, systolic murmur (2/6 systolic murmur heard best at the left sternal border.) - GI/Abdominal GI/Abdominal exam: Present: soft. Absent: tenderness - Extremities Exam Extremities exam: Absent: calf tenderness, pedal edema - Patient Status Disposition: Home, Self-Care Condition: Good Functional capacity at discharge: independent ambulation Overall status at discharge: patient is progressing back to baseline - Discharge Instructions Follow Up With: Ann Torres CNP [Primary Care Provider] - - Diet and Activity Activity: increase activity as tolerated Diet: low salt diet - VTE Documentation of Mechanical Device: Graduated compression elastic hosiery
== END 2017-10-19 15:15 | disposition home or self-care (01) ==
LOC: EMEROOGRE 15:23 → INPGRE 15:23
PROVIDERS: ADMIT Family Medicine; ATTEND Family Medicine